=== PATIENT | male | born 1985 | race Caucasian/White ===

== ENCOUNTER 2017-08-28 16:03 | Emergency (ER) | payer OTHER ==
[~2017-08-28] VITALS: Ht 172.7 cm; Wt 86.2 kg
[~2017-08-28 16:03] MED LIST: PRLSR20 PO
[2017-08-28 16:05] VITALS: TEMP 36.8; Ht 172.7 cm; Wt 86.2 kg
[2017-08-28 16:29] LABS: HEMATOCRIT 43.5 % (42-52); HEMOGLOBIN 14.8 g/dL (14.0-18.0); MEAN CELL VOLUME 94.8 fL (80-100); MEAN CORPUSCULAR HEMOGLOBIN 32.2 pg (25-34); MEAN PLATELET VOLUME 9.4 fL (7.4-10.4); PLATELET COUNT 282 K/uL (130-400); RED CELL DISTRIBUTION WIDTH CV 12.5 % (11.5-14.5); RED CELL DISTRIBUTION WIDTH SD 43.3 fL (36.4-46.3)
[2017-08-28 16:40] LABS: INR 1.1 (0.9-1.1); PTT PATIENT 25.4 SECONDS (21.0-31.0)
[2017-08-28 16:55] LABS: ALBUMIN 4.3 gm/dl (3.4-5.0); CALCIUM 8.9 mg/dl (8.5-10.1); CREATININE 1.11 mg/dl (0.60-1.40); POTASSIUM 3.9 mmol/L (3.5-5.1)
[2017-08-28 17:01] LABS: CKMB 1.2 ng/ml (0.5-3.6)
[2017-08-28] MEDS ORDERED: LORAZEPAM 2 MG/ML 1 ML VIAL IV STA (19:33)
--- NOTE | 2017-08-28 19:33 | EMERGENCY ROOM VISIT NOTE ---
History Report prepared by Judie: Jarred Wang Under the Supervision of: Dr. Leo Alejo M.D. First contact with patient: 19:25 Chief Complaint: CHEST PAIN Stated Complaint: CHEST PAIN Nursing Triage Summary: Pt has been having ongoing chest pain, worsening today. Pt seen at PCP and had normal EKG. Pt has been drinking daily fo 10 years, and Monday he stopped drinking and has not had alcohol since. Shakes. Denies difficulty breathing, seizures. History of Present Illness The patient is a 32 year old male who presents to the Emergency Room with complaints of intermittent chest pain beginning five days ago. He currently rates his discomfort a 2/10 in severity. The patient states he was evaluated by his PCP Monday for pain in the middle of his chest. He reports he did not have any tests performed and talked about his past. The patient notes his PCP believed he was having withdraw pain because he used to drink 6 beers a day for 10 years. He states he is also experiencing a headache, nausea, and mild shortness of breath. The patient reports he is still having discomfort today. He notes he was told he may have an ulcer from his prolonged alcohol use. He denies any exogenous hormone usage, steroid usage, history of blood clots, immobilization, recent surgeries or trauma, recent travel, long plane rides, long car rides, and trying to stop drinking alcohol before five days ago. Source of History: patient Onset: five days ago Position: chest Symptom Intensity: 2/10 Timing: intermittent Associated Symptoms: + headache, + SOB (mild), + nausea Note: Denies: long car rides, recent travel, long plane rides Review of Systems See HPI for pertinent positives and negatives. A total of ten systems were reviewed and were otherwise negative. Past Medical & Surgical Medical Problems: (1) Stomach problems Family History Diabetes mellitus Hypertension Social History Smoking Status: Never Smoker Alcohol Use: occasionally Drug Use: none Marital Status: Housing Status: lives with family Occupation Status: employed Current/Historical Medications Scheduled Omeprazole (Prilosec), 20 MG PO DAILY Sertraline HCl (Sertraline HCl), 10 MG PO DAILY Scheduled PRN Acetaminophen (Tylenol), 1,000 MG PO Q6 PRN for Headache or Pain Ibuprofen (Advil), 400 MG PO Q6 PRN for Headache or Pain Ondansetron (Ondansetron HCl), 4 MG PO Q8 PRN for Nausea or Vomiting Allergies Coded Allergies: No Known Allergies (Unverified , 04/16/15) Physical Exam Vital Signs Date Time Temp Pulse Resp B/P (MAP) Pulse Ox O2 Delivery O2 Flow Rate FiO2 08/28/17 21:40 72 16 134/78 97 08/28/17 19:36 76 16 138/75 96 Room Air 08/28/17 19:35 96 Room Air 08/28/17 16:09 97 Room Air 08/28/17 16:05 36.8 73 18 144/92 97 Room Air Physical Exam Physical Exam GENERAL: He is oriented to person, place, and time. He appears well-developed and well-nourished. He does not appear distressed. ____ HENT: Exam performed. Head: Normocephalic and atraumatic. Right Ear: External ear normal. No mastoid tenderness. Left Ear: External ear normal. No mastoid tenderness. Mouth/Throat: The oropharynx is clear and moist. No trismus in the jaw. No dental abscesses or uvula swelling. No oropharyngeal exudate or tonsillar abscesses. ____ EYES: Conjunctivae and EOM are normal. Pupils are equal, round, and reactive to light. Right eye exhibits no discharge. Left eye exhibits no discharge. No scleral icterus. ____ NECK: Normal range of motion. Neck supple. No JVD present. No spinous process tenderness present. No carotid bruit present. No rigidity. No tracheal deviation and normal range of motion present. No Brudzinski's sign and no Kernig 's sign noted. ____ CV: Normal rate, regular rhythm, normal heart sounds and intact distal pulses. There is no peripheral edema. Palpable radial pulses bue. ____ PULM/CHEST: Effort normal and breath sounds normal. No respiratory distress. No stridor. He has no wheezes. He has no rales. Chest Wall: He exhibits no tenderness. ____ ABD: The abdomen is soft. Bowel sounds are normal. He has no distension. No mass is present. There is no tenderness. There is no rebound, no guarding, no Vu's sign and no tenderness at McBurney's point. Rovsig negative MUSC/SKEL: Normal range of motion. There is no peripheral edema, tenderness or deformity. LYMPH: No cervical adenopathy. ____ NEURO: He is alert and oriented to person, place, and time. He has normal strength. No cranial nerve deficit or sensory deficit. Coordination and gait normal. GCS eye subscore is 4. GCS verbal subscore is 5. GCS motor subscore is 6. Cerebellar tests wnl. ____ SKIN: Skin is warm and dry. He is not diaphoretic. ____ PSYCH: He has a normal mood and affect. His behavior is normal. Judgment and thought content normal. ____ Medical Decision & Procedures ER Provider Diagnostic Interpretation: X-ray: Per my interpretation, radiologist review. PA CHEST WITH ABDOMINAL SERIES CLINICAL HISTORY: Atypical chest pain. Epigastric abdominal pain. FINDINGS: A PA chest radiograph is obtained. No prior studies are available for comparison at the time of dictation. The cardiomediastinal silhouette is unremarkable. The lungs and pleural spaces are clear. No pneumothorax is seen. The bony thorax is grossly intact. Supine and erect abdominal radiographs are obtained. No prior studies are available for comparison at the time of dictation. There is a nonobstructed abdominal bowel gas pattern. Moderate fecal retention is noted. No evidence of intraperitoneal free air is seen. There are no abnormal abdominal calcifications. The lumbosacral spine and bony pelvis appear intact. There are chronic left pubic ring fractures. IMPRESSION: 1. No active disease in the chest. 2. Nonobstructed abdominal bowel gas pattern. Electronically signed by: Thaddeus Willingham M.D. 08/28/2017 8:49 PM Dictated Date/Time: 08/28/2017 8:48 PM Laboratory Results 08/28/17 16:11 08/28/17 16:11 Test 08/28/17 16:11 08/28/17 20:07 Red Blood Count 4.59 M/uL (4.7-6.1) Mean Corpuscular Volume 94.8 fL (80-100) Mean Corpuscular Hemoglobin 32.2 pg (25-34) Mean Corpuscular Hemoglobin Concent 34.0 g/dl (32-36) RDW Standard Deviation 43.3 fL (36.4-46.3) RDW Coefficient of Variation 12.5 % (11.5-14.5) Mean Platelet Volume 9.4 fL (7.4-10.4) Prothrombin Time 11.1 SECONDS (9.0-12.0) Prothromb Time International Ratio 1.1 (0.9-1.1) Activated Partial Thromboplast Time 25.4 SECONDS (21.0-31.0) Partial Thromboplastin Ratio 1.0 D-Dimer < 190 ug/L FEU (0-500) Anion Gap 5.0 mmol/L (3-11) Est Creatinine Clear Calc Drug Dose 103.0 ml/min Estimated GFR () 102.0 Estimated GFR (Non- 88.0 BUN/Creatinine Ratio 12.3 (10-20) Calcium Level 8.9 mg/dl (8.5-10.1) Total Bilirubin 0.4 mg/dl (0.2-1) Direct Bilirubin 0.1 mg/dl (0-0.2) Aspartate Amino Transf (AST/SGOT) 28 U/L (15-37) Alanine Aminotransferase (ALT/SGPT) 64 U/L (12-78) Alkaline Phosphatase 49 U/L (45-117) Total Creatine Kinase 167 U/L (39-308) Creatine Kinase MB 1.2 ng/ml (0.5-3.6) Creatine Kinase MB Ratio 0.7 (0-3.0) Troponin I < 0.015 ng/ml (0-0.045) Total Protein 8.1 gm/dl (6.4-8.2) Albumin 4.4 gm/dl (3.4-5.0) Globulin 3.7 gm/dl (2.5-4.0) Albumin/Globulin Ratio 1.2 (0.9-2) Lipase 172 U/L (73-393) Bedside Troponin I < 0.030 ng/ml (0-0.045) Laboratory results reviewed by me Medications Administered Medications (Trade) Dose Ordered Sig/Vishal Route Start Time Stop Time Status Last Admin Dose Admin Lorazepam (Ativan Inj) 1 mg NOW STAT IV 08/28/17 19:33 08/28/17 19:34 DC 08/28/17 20:03 1 MG ECG Per My Interpretation Indication: chest pain Rate (beats per minute): 74 Rhythm: sinus rhythm Findings: other ([place], QRS, and QTc are wnl. Baseline wandering due to patient moving.) Change: Repeat EKG in the same visit: Sinus rhythm with a rate of 63. No ST elevation or depression. Mild TWI in lead III. [place], QRS, and QTc are wnl. ED Course 1926: The patient was evaluated in room A12B. A complete history and physical exam was performed. 1932: Ordered Lorazepam 1mg IV 2113: Vital signs are stable. Repeat physical exam within normal limits, no tremor on exam. EKG, troponin x2, and imaging are all within normal limits. DISCHARGE - Plan of care discussed with patient and questions answered. The patient was given both verbal and printed discharge instructions. The patient verbalized understanding and ability to comply. The patient is to seek outpatient follow up as noted in the discharge instructions. The patient verbalized understanding and ability to comply. The patient is discharged in stable condition. The patient was instructed to return for worsening symptoms. Medical Decision Vital signs are stable. Repeat physical exam within normal limits, no tremor on exam. EKG, troponin x2, and imaging are all within normal limits. DISCHARGE - Plan of care discussed with patient and questions answered. The patient was given both verbal and printed discharge instructions. The patient verbalized understanding and ability to comply. The patient is to seek outpatient follow up as noted in the discharge instructions. The patient verbalized understanding and ability to comply. The patient is discharged in stable condition. The patient was instructed to return for worsening symptoms. Medication Reconcilliation Current Medication List: was personally reviewed by me Blood Pressure Screening Patient's blood pressure: Normal blood pressure Blood pressure disposition: Did not require urgent referral Impression Primary Impression: Chest pain Scribe Attestation The scribe's documentation has been prepared under my direction and personally reviewed by me in its entirety. I confirm that the note above accurately reflects all work, treatment, procedures, and medical decision making performed by me. The chart was completed utilizing [employer] Speech voice recognition software. Grammatical errors, random word insertions, pronoun errors, and incomplete sentences are an occasional consequence of this system due to software limitations, ambient noise, and hardware issues. Any formal questions or concerns about the content, text, or information contained within the body of this dictation should be directly addressed to the physician for clarification. Departure Information Dispostion Home / Self-Care Referrals Mark Isaacs M.D.([facility]) (PCP) Forms Call Back Authorization, HOME CARE DOCUMENTATION FORM, IMPORTANT VISIT INFORMATION Patient Instructions Chest Pain - [facility], [facility] Additional Instructions Return to the emergency department if you develop worsening chest pain, shortness of breath, vomit blood, seizure, shakes Problem Qualifiers Primary Impression: Chest pain Chest pain type: unspecified Qualified Codes: R07.9 - Chest pain, unspecified
[2017-08-28 19:35] VITALS: O2SAT 96
[2017-08-28 19:56] LABS: ALBUMIN 4.4 gm/dl (3.4-5.0); ALKALINE PHOSPHATASE 49 U/L (45-117); ALT/SGPT 64 U/L (12-78); AST/SGOT 28 U/L (15-37); LIPASE 172 U/L (73-393); TOTAL PROTEIN 8.1 gm/dl (6.4-8.2)
[2017-08-28] MEDS ORDERED: OMEP20CA9 PO (20:44)
[2017-08-28] MEDS ORDERED: ONDA4TAB9 PO (20:44)
[2017-08-28] MEDS ORDERED: ZLF/100 PO (20:44)
[2017-08-28] MEDS ORDERED: IBUP-1050 PO (20:46)
[2017-08-28] MEDS ORDERED: ACET-1256 PO (20:46)
--- NOTE | 2017-08-28 20:50 | DIAGNOSTIC IMAGING REPORT ---
PA CHEST WITH ABDOMINAL SERIES CLINICAL HISTORY: Atypical chest pain. Epigastric abdominal pain. FINDINGS: A PA chest radiograph is obtained. No prior studies are available for comparison at the time of dictation. The cardiomediastinal silhouette is unremarkable. The lungs and pleural spaces are clear. No pneumothorax is seen. The bony thorax is grossly intact. Supine and erect abdominal radiographs are obtained. No prior studies are available for comparison at the time of dictation. There is a nonobstructed abdominal bowel gas pattern. Moderate fecal retention is noted. No evidence of intraperitoneal free air is seen. There are no abnormal abdominal calcifications. The lumbosacral spine and bony pelvis appear intact. There are chronic left pubic ring fractures. IMPRESSION: 1. No active disease in the chest. 2. Nonobstructed abdominal bowel gas pattern. Electronically signed by: Thaddeus Willingham M.D. 08/28/2017 8:49 PM Dictated Date/Time: 08/28/2017 8:48 PM
[2017-08-28 21:40] VITALS: BP 134/78; PULSE 72; O2SAT 97
== END 2017-08-28 21:40 | disposition home or self-care (01) ==
LOC: C.EDB 16:04 → C.EDA 21:40
DX: R07.9 Chest pain, unspecified (principal); Z83.3 Family history of diabetes mellitus; Z82.49 Family history of ischemic heart disease and other diseases of the circulatory system